=== PATIENT | male | born 1955 | race Caucasian/White ===

== ENCOUNTER → 2020-10-24 12:39 | Outpatient (CLI) | payer MEDICARE, SELFPAY ==
--- NOTE | ~2020-10-24 | CT_ITS ---
EXAMINATION: CT abdomen pelvis w con DATE: 10/24/2020 13:31 INDICATION: Prostate cancer staging TECHNIQUE: Computed tomography (CT) of the abdomen and pelvis was performed with 100 cc Omnipaque 350 intravenous contrast. Automated exposure control and iterative reconstruction technique were employe d. Exam dose: 774.62 mGy-cm total exam DLP. COMPARISON: None. FINDINGS: There is discoid atelectasis or scarring in both lower lobes. No pulmonary consolidation. Normal heart size. No pericardial effusion or pleural effusion. Diffuse hepatic steatosis. No hepatic space-occupying mass lesion. One or more gallstones at the neck of the gallbladder. No gallbladder wall thickening or pericholecystic fluid or fat stranding. No rain e duct or pancreatic duct dilatation. No pancreatic mass lesion or calcification. Normal splenic size. Normal morphology of the adrenal glands. 1.5 cm lower pole left renal cyst. No other renal mass lesion is evident. No urinary tract calculus o r hydroureteronephrosis. Normal caliber of the abdominal aorta. No intraperitoneal or retroperitoneal or pelvic adenopathy or ascites. There is nodular soft tissue impression upon the base of the urinary bladder with some contrast enhan cement, likely due to the clinically reported prostate cancer. There is moderate diffuse bladder wall thickening. There is prostate enlargement and calcification. Small sliding hiatal hernia. No bowel obstruction, bowel wall thickening, pneumatosis or intraperiton eal free air. Posterior and interbody spinal fusion at L4-S1. No osteolytic or osteosclerotic metastatic lesions are identified. IMPRESSION: Probable enhancing prostate cancer impressing the base of the urinary bladder no pelvic or abdominal lymphadenopathy; no pelvic or abdominal or skeletal metastatic disease is identified Moderate thickening of the urinary bladder wall which may indicate some bladder outlet obstruction Status post posterior and interbody spinal fusion at L4-S1 Hepatic steatosis 1.5 cm left renal cyst Reviewed, dictated and finalized at Location A. Reviewed, dictated and finalized at location B. IANCE INSTALLER IMPRESSION: Probable enhancing prostate cancer impressing the base of the urin mary bladder no pelvic or abdominal lymphadenopathy; no pelvic or abdominal or s keletal metastatic disease is identified Moderate thickening of the urinary bladder wall which may indicate some bladder outlet obstruction Status post posterior and interbody spinal fusion at L4-S1 Hepatic steatosis 1.5 cm left renal cyst
[2020-10-24 13:21] LABS: Estimated Glomerular Filt Rate > 60
== END ==
PROVIDERS: PCP Family Medicine; Visit Provider Urology
DX: C61 Malignant neoplasm of prostate (principal)
CPT/HCPCS: 74177; Q9967

== ENCOUNTER 2020-11-09 10:15 | Outpatient (CLI) | payer MEDICARE, SELFPAY | END 2020-11-09 10:16 | disposition home or self-care (01) | LOC: ANHCOVIDVC 10:15 | PROVIDERS: PCP Family Medicine | DX: Z23 Encounter for immunization (principal) | CPT/HCPCS: 0001A; 91300 ==

== ENCOUNTER 2020-11-30 10:13 | Outpatient (CLI) | payer MEDICARE, SELFPAY | END 2020-11-30 10:14 | disposition home or self-care (01) | LOC: ANHCOVIDVC 10:13 | PROVIDERS: PCP Family Medicine | DX: Z23 Encounter for immunization (principal) | CPT/HCPCS: 0002A; 91300 ==

== ENCOUNTER 2020-12-24 10:21 | Outpatient (CLI) | payer MEDICARE, SELFPAY ==
--- NOTE | 2020-12-24 10:30 | ECG_ITS ---
Measurements Intervals [place] Rate: 65 P: 32 OR: 192 QRS: 9 QRSD: 84 T: 12 QT: 374 QTc: 390 Interpretive Statements SINUS RHYTHM BASELINE ARTIFACT- I, II, III, AVR, AVL, AVF, V4 NORMAL ECG Electronically Signed On 12-24-2020 12:18:48 CDT by Lux Eli D.O.
== END 2020-12-24 10:22 | disposition home or self-care (01) ==
LOC: ANHSURGERY 10:23
PROVIDERS: PCP Family Medicine; Visit Provider Urology
DX: Z01.810 Encounter for preprocedural cardiovascular examination (principal); I10 Essential (primary) hypertension
CPT/HCPCS: 93005

== ENCOUNTER → 2020-12-29 00:57 | Outpatient (CLI) | payer MEDICARE, SELFPAY ==
[2020-12-29 20:54] LABS: SARS-CoV-2 RNA PCR Negative
== END ==
PROVIDERS: PCP Family Medicine; Visit Provider Urology
DX: Z01.812 Encounter for preprocedural laboratory examination (principal); Z20.822 Contact with and (suspected) exposure to COVID-19
CPT/HCPCS: C9803; U0003; U0005

== ENCOUNTER 2021-01-01 01:25 | Day surgery (SDC) | payer MEDICARE, SELFPAY ==
[2020-12-19 10:54] VITALS: BMI 28.0
--- NOTE | 2021-01-01 09:05 | WPDANESEPPF ---
Anes - Initial Pre Proc Eval Procedure: Operation Date: 01/01/21 11:00 Proposed Procedures p Insertion SpaceOAR Hydrogel System - Toni Theodore MD Date/Time: 01/01/21 09:05 Surgeon: Toni Theodore MD Pre Op Diagnosis: prostate CA Patient Data Age: 65 Gender: M Height: 1.75 m Weight: 86 kg Allergies Allergy/AdvReac Type Severity Reaction Status Date / Time Penicillins Allergy Mild Rash Verified 01/01/21 09:59 tobramycin Allergy Mild Rash Verified 01/01/21 09:59 guaifenesin Allergy Unknown Rash Verified 01/01/21 09:59 niacin Allergy Unknown Rash Verified 01/01/21 09:59 MYTRACIN Allergy Mild Rash Uncoded 01/01/21 09:59 Home Medications Medication Instructions Recorded Confirmed Type irbesartan 300 mg tablet 300 mg PO HS 02/03/20 01/01/21 History gabapentin 300 mg capsule 300 mg PO BID #60 cap 10/30/20 01/01/21 Rx atorvastatin 10 mg PO QAM 12/19/20 01/01/21 History nadolol 40 mg PO QAM 12/19/20 01/01/21 History Patient hx anesthesia problems: none Family hx anesthesia problems: none PMFSH Past Medical History Medical History (Updated 01/01/21 @ 09:07 by Anton Neri MD) Benign essential hypertension Encounter for hepatitis C screening test for low risk patient Metabolic syndrome Mixed hyperlipidemia Overweight Overweight (BMI 25.0-29.9) Peritonsillar abscess Prediabetes Prostate CA Surgical History Surgical History H/O arthroscopy of shoulder 07-08-1990, and 01-05-2001 History of arthroscopic surgery of elbow 10-08-1997, and 05-08-2004 History of cervical discectomy 07-08-2016 History of colonoscopy 04-17-2008 Family History Family History Grandparent Diabetes mellitus Family history of malignant neoplasm Family history of coronary artery disease Mother Diabetes mellitus Hypertension Family history of elevated blood lipids Family history of coronary artery disease Father Family history of glaucoma Hypertension Family history of elevated blood lipids Acute myocardial infarction Family history of coronary artery disease Social History Social History Smoking status: Never smoker Alcohol intake: current Substance use: never Living arrangements: with family Spiritual care concerns: No Anes - Eval Final PreProcedure Day of Procedure 01/01/21 09:05 Patient weight: overweight Heart: regular rate and rhythm Lungs: clear to auscultation and normal air movement Airway: Mallampati scale class II Neurological: alert and oriented Last oral intake: >/= 8 hours ASA classification: III Emergent: no Anesthetic plan: proceed Anesthesia type and monitoring: general GIVS and LMA Informed Consent: The patient's anesthetic plan and its attendant risks and benefits were discussed with the patient/family/POA. Questions were solicited and answers provided to the satisfaction of the patient/family/POA.
[2021-01-01 10:00] VITALS: BMI 27.6
[2021-01-01] MEDS: LACTATED RINGERS 1,000 ML 30 ML IV CONT (10:11)
--- NOTE | 2021-01-01 10:19 | WPDHPUPDATE1 ---
History and Physical Update Update Date/Time: 01/01/21 10:19 History and Physical has been reviewed, including an updated exam of the patient. There are NO changes in the patient's condition. Risks, benefits, and alternatives have been discussed and questions answered. Patient agrees to proceed with procedure. Proceed with space oar
[2021-01-01 10:28] VITALS: BP 128/79; PULSE 66; RESP 16; TEMP 36.9; O2SAT 99
[2021-01-01] MEDS: ceFAZolin 2 GM/D5W 50 ML 2 GM/50 ML BAG IVPB (11:36)
--- NOTE | 2021-01-01 11:57 | PM.PROC ---
Procedure Note - Detailed Date of procedure: 01/01/21 Pre-op diagnosis: prostate CA Post-op diagnosis: same Procedure performed: Transrectal ultrasound with space oar placement Description of procedure: Patient is taken the operative suite and correctly identified. Once anesthesia was obtained was placed in dorsal lithotomy position and prepped and draped usual sterile fashion. Transrectal ultrasound was then performed. Prostate was visualized in both transverse sagittal planes. Spinal needle was inserted into the perineum and advanced into the space between the prostate and the rectum. This is very of sherrie by injecting is cc saline. Aspiration revealed no edema. The space Oar material was injected but it froze up after about a cc. At this point we reintroduced another spinal medial into the appropriate location and injected the full 10 cc. There was good separation of the prostate from the rectum. This was verified again in both sagittal and transverse planes. Patient was taken recovery stable condition. Anesthesia: GLMA Surgeon: Toni Theodore MD Drains: No Packing: No Pathology: none sent Complications: No immediate complications Condition: stable Disposition: PACU
[2021-01-01 12:00] VITALS: BP 95/61; PULSE 71; RESP 12; O2SAT 94
[2021-01-01 12:30] VITALS: BP 95/61; PULSE 69; RESP 12; O2SAT 98
== END 2021-01-01 12:42 | disposition home or self-care (01) ==
PROVIDERS: PCP Family Medicine; Visit Provider Urology
DX: C61 Malignant neoplasm of prostate (principal); I10 Essential (primary) hypertension; E78.2 Mixed hyperlipidemia; E66.3 Overweight; Z68.27 Body mass index [BMI] 27.0-27.9, adult
CPT/HCPCS: 55874; 93005; A9270; C1889; C9803; J0690; J2405; J2704; J3010; J7120; U0003; U0005

== ENCOUNTER → 2021-01-08 10:42 | Outpatient (CLI) | payer MEDICARE, SELFPAY ==
--- NOTE | ~2021-01-08 | MR_ITS ---
EXAMINATION: MR pelvis wo/w con INDICATION: Prostate cancer TECHNIQUE: Coronal SSFSE ARC, Axial, Sagittal, and Coronal 2D FIESTA FatSat, Axial 3D T2 Cube, Axial SSFSE BH ARC, Axial 3D DualEcho BH, Axial SSFSE-IR Wing, Axial DWI b=600, pre and dynamic postcontrast Axial LAVA ARC, WATER:POST Cor LAVA-FLEX COMPARISON: CT, 10/24/2020 CONTRAST: Multihance, 15 cc FINDINGS: There is hypertrophy of the median lobe of the prostate which protrudes into the bladder ba se. There is diffusely low T2 signal intensity in the prostate. No pathologically enlarged pelvic lym ph nodes are identified. There are changes of anterior and posterior fusion from L4 through S1. Mater ial situated between the rectum and prostate likely relates to prostate biopsy. There are no dilated loops of bowel. A 2.4 cm cyst is noted in the lower pole of the left kidney. IMPRESSION: 1. No evidence of metastatic disease. Reviewed, dictated and finalized at location A.
[2021-01-08 11:32] LABS: Estimated Glomerular Filt Rate > 60
== END ==
PROVIDERS: Visit Provider Radiology Radiation Oncology
DX: C61 Malignant neoplasm of prostate (principal)
CPT/HCPCS: 72197; A9577

== ENCOUNTER 2021-06-11 09:44 | Outpatient (CLI) | payer MEDICARE, SELFPAY ==
--- NOTE | 2021-06-11 | ECG_ITS ---
Measurements Intervals [place] Rate: 58 P: 54 VT: 199 QRS: 23 QRSD: 87 T: 29 QT: 394 QTc: 388 Interpretive Statements SINUS BRADYCARDIA BORDERLINE ECG Electronically Signed On 06-11-2021 10:58:21 CDT by Lux Eli D.O.
[2021-06-11 10:07] LABS: Hematocrit 41.5 % (42.0-52.0); Hemoglobin 14.3 g/dL (14.0-18.0); Mean Corpuscular HGB Conc 34.5 g/dl (32-36); Mean Corpuscular Hemoglobin 33.9 pg (26-34); Mean Corpuscular Volume 98.3 fl (80-100); Mean Platelet Volume 8.5 fl (7.4-10.4); Platelet Count Result 184 k/mm3 (150-375); Red Blood Count 4.22 M/mm3 (4.6-6.20); Red Cell Distribution Width 11.9 % (11.5-14.5); White Blood Count 4.1 K/mm3 (4.5-10.0)
[2021-06-11 10:21] LABS: Alanine Aminotransferase 37 U/L (4-50); Albumin Level 4.6 g/dL (3.5-5.1); Alkaline Phosphatase 57 U/L (38-126); Anion Gap 8 mmol/L (8-16); Aspartate Amino Transferase 34 U/L (17-59); Bilirubin,Total 0.4 mg/dL (0.2-1.3); Blood Urea Nitrogen 18 mg/dL (9-20); Calcium 9.3 mg/dL (8.4-10.2); Carbon Dioxide 30 mmol/L (22-30); Chloride 103 mmol/L (98-107); Estimated Glomerular Filt Rate > 60; Glucose 101 mg/dL (65-110); Potassium 4.8 mmol/L (3.4-5.0); Sodium 141 mmol/L (137-145)
== END 2021-06-11 09:45 | disposition home or self-care (01) ==
LOC: ANHLAB 09:47
PROVIDERS: PCP Family Medicine; Visit Provider Orthopaedic Surgery
DX: Z01.818 Encounter for other preprocedural examination (principal); R00.1 Bradycardia, unspecified
CPT/HCPCS: 36415; 80053; 85027; 93005

== ENCOUNTER → 2022-07-07 10:02 | Outpatient (CLI) | payer MEDICARE, SELFPAY ==
--- NOTE | ~2022-07-07 | XR_ITS ---
XR cervical spine min 6V DATE: 07/07/2022 10:37 INDICATION: Previous surgery TECHNIQUE: AP, open-mouth, lateral, swimmer's and bilateral oblique COMPARISON: None FINDINGS: Status post anterior and interbody surgical fusion at C3-4. Status post anterior and interbody surgical fusion at C4-5. Status post anterior and interbody spinal fusion at C6-7. There is evidence of surgical interbody fusion at the C5-6 interspace. There is straightening of the cervical spine. C1 and C2 are normally aligned and the odontoid process is intact. No fracture or dislocation or prevertebral soft tissue swelling is noted. IMPRESSION: Cervical surgical fusion at C3-C7 Reviewed, dictated and finalized at location A.
--- NOTE | ~2022-07-07 | XR_ITS ---
XR lumbar spine min 4V DATE: 07/07/2022 10:36 INDICATION: Previous surgery TECHNIQUE: AP, lateral, bilateral oblique and coned lateral lumbosacral views COMPARISON: None FINDINGS: Pedicle screws and rods are noted bilaterally as well as interbody spinal fusion at L4-S1. There is minimal retrolisthesis and moderate degenerative disc disease at L3-4. L1-2 and L2-3 interspaces are well preserved. No fracture or bone destruction is evident. The sacroiliac joints are intact. Approximately 6 mm calcified gallstone overlying right upper quadrant. IMPRESSION: Status post bilateral posterior and interbody spinal fusion at L4-S1 Cholelithiasis Reviewed, dictated and finalized at location A. IMPRESSION: Status post bilateral posterior and interbody spinal fusion at L4-S 1 Cholelithiasis
== END ==
PROVIDERS: PCP Family Medicine; Visit Provider Family Medicine
DX: M54.9 Dorsalgia, unspecified (principal); M54.2 Cervicalgia; Z98.1 Arthrodesis status; K80.20 Calculus of gallbladder without cholecystitis without obstruction
CPT/HCPCS: 72052; 72110

== ENCOUNTER → 2022-08-04 11:45 | Outpatient (CLI) | payer MEDICARE, SELFPAY ==
--- NOTE | ~2022-08-04 | XR_ITS ---
XR lumbar spine 2-3V DATE: 08/04/2022 12:11 INDICATION: Back pain TECHNIQUE: AP, lateral, coned lateral lumbosacral views COMPARISON: 07/07/2022 lumbar spine FINDINGS: Status post posterior and interbody spinal fusion at L4-S1. Hardware appears intact without fracture or displacement since 07/07/2022. There is mild thoracolumbar levoscoliosis. No fracture or bone destruction of the lumbar spine is evident. There is however moderate loss of hei ght and anterior wedging of T12 since 07/07/2022, consistent with recent T12 fracture, likely ronaldo karlie type. There is mild degenerative disc disease IMPRESSION: Recent T12 probable compression fracture Status post posterior and interbody spinal fusion at L4-S1 Reviewed, dictated and finalized at location B. WHEELER
--- NOTE | ~2022-08-04 | XR_ITS ---
XR sacrum coccyx min 2V DATE: 08/04/2022 12:04 INDICATION: Sacrococcygeal disorder TECHNIQUE: AP and angled AP views COMPARISON: None FINDINGS: No sacral or coccygeal fracture or bone destruction is detected. Sacroiliac joints are int act. Pedicle screws and cage devices at L5-S1 Surgical clips overlie prostate bed. IMPRESSION: No significant abnormality of the sacrum or coccyx Lumbosacral spine surgical fusion Reviewed, dictated and finalized at location B. WORKER
== END ==
PROVIDERS: PCP Nurse Practitioner; Visit Provider Nurse Practitioner
DX: M54.9 Dorsalgia, unspecified (principal); M53.3 Sacrococcygeal disorders, not elsewhere classified; Z98.1 Arthrodesis status
CPT/HCPCS: 72100; 72220

== ENCOUNTER → 2022-10-01 08:23 | Outpatient (CLI) | payer MEDICARE, SELFPAY ==
--- NOTE | ~2022-10-01 | XR_ITS ---
Supine and upright views of the abdomen Clinical history: Hematuria, history of kidney stones Findings: Bowel gas pattern is nonspecific. No evidence for obstruction or free air. 7 mm calcificati on overlies the right upper renal pole. Lumbosacral spinal fixation hardware is present. Impression: Probable 7 mm right upper pole renal stone. Reviewed, dictated and finalized at [facility]. R BELT CONVEYOR Impression: Probable 7 mm right upper pole renal stone.
--- NOTE | ~2022-10-01 | CT_ITS ---
CT of the Abdomen and Pelvis: Indication: Gross hematuria Technique: 2.5 mm axial scans were obtained through the abdomen and pelvis prior to and following in travenous administration of 130 cc of Omnipaque 350. Dose reduction technique was used on this scan b y utilizing automated exposure control and iterative reconstruction technique. The dose-length produc t (DLP) was 1877.54 mGy-cm. COMPARISON: 08/23/2021 Findings: Scans through the lung bases are unremarkable. Diffuse fatty infiltration of liver noted. Calcified gallstone present. Simple left renal cyst presen t. The spleen, pancreas, adrenals and kidneys are otherwise within normal limits. No evidence of aor tic aneurysm. Ureters are opacified, and unremarkable. No lymphadenopathy. No bowel obstruction or bowel wall thickening. There is no evidence to suggest acute appendicitis. Images through the pelvis were performed. Urinary bladder unremarkable. Prostate gland there is mildl y prominent, with fiducial markers present. No ascites. There is compression fracture of T12, with pr obable sclerotic change. Impression: No etiology for hematuria identified. Cholelithiasis. Diffuse fatty infiltration of the liver. T12 compression fracture with sclerotic change. Patient has reported history of prostate cancer. Path ologic fracture with osteoblastic metastatic disease to the T12 vertebral body is a consideration sabina tracey reactive sclerosis and benign fracture. MR could be considered to better evaluate the underlying marrow signal characteristics, as indicated. Reviewed, dictated and finalized at [facility]. STRAIGHTENER Impression: No etiology for hematuria identified. Cholelithiasis. Diffuse fatty infiltration of the liver. T12 compression fracture with sclerotic change. Patient has reported history of prostate cancer. Pathologic fracture with osteoblastic metastatic disease to t he T12 vertebral body is a consideration versus reactive sclerosis and benign f racture. MR could be considered to better evaluate the underlying marrow signal characteristics, as indicated.
[2022-10-01 09:16] LABS: Estimated Glomerular Filt Rate > 60
== END ==
PROVIDERS: PCP Family Medicine; Visit Provider Urology
DX: R31.0 Gross hematuria (principal); K80.20 Calculus of gallbladder without cholecystitis without obstruction; K76.0 Fatty (change of) liver, not elsewhere classified; M48.54XA Collapsed vertebra, not elsewhere classified, thoracic region, initial encounter for fracture
CPT/HCPCS: 74018; 74178; Q9967

== ENCOUNTER 2024-02-05 09:29 | Outpatient (CLI) | payer MEDICARE, SELFPAY ==
--- NOTE | ~2024-02-05 | XR_ITS ---
EXAMINATION: XR lumbar spine min 4V DATE: 02/05/2024 09:52 INDICATION: Low back pain. TECHNIQUE: 5 views of lumbar spine including standing views and flexion and extension views were obta ined. COMPARISON: Lumbar spine radiographs 08/04/2022 FINDINGS: There are changes of anterior and posterior fusion procedures from L4 to S1 with interbody devices and pedicle screws. There is no abnormal motion on flexion or extension. There is a chronic c ompression fracture of T12 with 2/5 loss of height. There is moderately decreased disc height at L3-L 4. There is multilevel mild facet joint osteoarthritis. IMPRESSION: 1. Moderate spondylosis at L3-L4. 2. Anterior and posterior fusion procedures from L4 to S1. Reviewed, dictated and finalized at location A.
== END 2024-02-05 09:30 ==
DX: M48.062 Spinal stenosis, lumbar region with neurogenic claudication (principal); M43.06 Spondylolysis, lumbar region; Z98.1 Arthrodesis status
CPT/HCPCS: 72110

== ENCOUNTER 2024-05-16 11:40 | Outpatient (CLI) | payer MEDICARE, SELFPAY | END 2024-05-16 11:41 | disposition home or self-care (01) | LOC: MICIMG 11:41 | PROVIDERS: PCP Physical Medicine & Rehabilitation; Visit Provider Physical Medicine & Rehabilitation | DX: M25.561 Pain in right knee (principal) | CPT/HCPCS: 73564 ==

== ENCOUNTER 2024-11-11 08:10 | Outpatient (CLI) | payer MEDICARE, SELFPAY ==
--- NOTE | ~2024-11-11 | CT_ITS ---
EXAMINATION: CT sinus wo con DATE: 11/11/2024 08:21 INDICATION: Chronic sinusitis, unspecified. TECHNIQUE: Computed tomography (CT) of the paranasal sinuses was performed without intravenous contra st. Iterative reconstruction technique was employed. The dose-length product was 263.20 mGy-cm. COMPARISON: None FINDINGS: There is moderate mucosal thickening in the frontal recesses. There is mild mucosal thicken ing in the bilateral ethmoid and maxillary sinuses and left sphenoid sinus. The ostiomeatal units are patent. There is leftward deviation of the nasal septum. IMPRESSION: 1. Mucosal thickening in the paranasal sinuses. 2. Leftward deviation of the nasal septum. Reviewed, dictated and finalized at location A. HASING AGENT
== END 2024-11-11 08:11 | disposition home or self-care (01) ==
LOC: MICIMG 08:10
PROVIDERS: PCP Family Medicine; Visit Provider Otolaryngology Otolaryngology/Facial Plastic Surgery
DX: J34.89 Other specified disorders of nose and nasal sinuses (principal); J34.2 Deviated nasal septum
CPT/HCPCS: 70486

== ENCOUNTER 2025-03-21 11:25 | Outpatient (CLI) | payer MEDICARE, SELFPAY ==
--- NOTE | ~2025-03-21 | CT_ITS ---
CT of the Abdomen: Indication: Right upper quadrant pain Technique: 2.5 mm axial scans were obtained through the abdomen following intravenous administration of 100 cc of Omnipaque 350. Dose reduction technique was used on this scan by utilizing automated ex posure control and iterative reconstruction technique. The dose-length product (DLP) was 526.52 mGy-c m. COMPARISON: 09/26/2022 Findings: Scans through the lung bases are unremarkable. There is diffuse hepatic steatosis. Small calcified gallstone present. The spleen, pancreas, adrenals and kidneys are within normal limits. No evidence of aortic aneurysm. No lymphadenopathy. Visualized bowel loops are unremarkable. No ascites. Impression: Diffuse hepatic steatosis. Small calcified gallstone. Reviewed, dictated and finalized at location . Impression: Diffuse hepatic steatosis. Small calcified gallstone.
[2025-03-21 11:51] LABS: Estimated Glomerular Filt Rate > 60
== END 2025-03-21 11:26 | disposition home or self-care (01) ==
LOC: MICIMG 11:26
PROVIDERS: PCP Family Medicine; Visit Provider Family Medicine
DX: K76.0 Fatty (change of) liver, not elsewhere classified (principal); K80.20 Calculus of gallbladder without cholecystitis without obstruction
CPT/HCPCS: 74160; Q9967

== ENCOUNTER 2025-05-29 00:32 | Day surgery (SDC) | payer MEDICARE, SELFPAY ==
--- OUTSIDE RECORDS SUMMARY | 2025-02-17 04:42 | XMS_ITS | Continuity of Care Document ---
Author Organization [facility] Address [address] [place] [address] Phone Care Team Providers Care Cattyman Name Role Phone Chao Hinkle MD Unavailable Unavailable Medications Medication Instructions Dosage Effective Dates (start - stop) Status Comments Sutab 1.479-0.188-0.225 gram tablet take by oral route as directed per package instructions 0.00 - Active 03/19/22 07 Sutab 1.479-0.188-0.225 gram tablet take by oral route as directed per package instructions 0.00 - No Longer Active 03/19/22 07 Procedures Procedure Date MRI OF NECK, SPINE W/O CONTRAST 023 MRI, LUMBAR SPINE W/O CONTRAST TISSUE EXAM BY PATHOLOGIST Colonoscopy, Flex; Diagnostic, With Endo Mucosal Resection INJECTION ANESTHETIC AND/OR STERIOD, TRANS EPIDURAL LUMB OR SACRAL,, SINGLE LEVE SURGICAL TRAY LOW OSMOLAR CONTRAST (200 TO 299 MG IODI NE) DEPO-MEDROL 80MG INJECT, ANESTHETIC AND/OR ST EROID, TRANSFORAMINAL EPIDURAL; C/T, SINGLE LEVEL LOW OSMOLAR CONTRAST (200 TO 299 MG IODI NE) INJ, DEXAMETHASONE SODUIM PHOSPHATE (DEC ADRON) 1MG SURGICAL TRAY INJECT, ANESTHETIC AND/OR ST EROID, TRANSFORAMINAL EPIDURAL; C/T, SINGLE LEVEL LOW OSMOLAR CONTRAST (200 TO 299 MG IODI NE) INJ, DEXAMETHASONE SODUIM PHOSPHATE (DEC ADRON) 1MG SURGICAL TRAY TISSUE EXAM BY PATHOLOGIST COLONOSCOPY AND BIOPSY Advance Directives Directive Yes / No Effective Date File Name No Information Encounters Encounter Description Practice Location Reason(s) For Visit Diagnoses Date Provider Providers Copied on Encounter [facility], [address], [place], [place], [address], tel:[phone] [facility] No Information Arin Guidry. [address] [place] [address], [id number] , [place]. tel:[phone] [facility], [address], [place], [place], [address], [place] tel:[phone] [facility] No Information Rohini Brunner. [address] , [place], [place], [id number] , [place]. tel:[phone] Referring Provider: Chauncey Cobos, [address], [place], [address]. tel:[phone] [facility], [address], [place], [place], [address], [place] tel:[phone] [facility] No Information Arin Guidry. [address] [place] [address], [id number] , [place]. tel:[phone] Referring Provider: Parker Lorenzo, [address] [place], [address]. [facility], [address], [place], [place], [address], [place] tel:[phone] [facility] No Information Arin Guidry. [address] [place] [address], [id number] , [place]. tel:[phone] Referring Provider: Loli Simmons, [address] [place], [address]. tel:[phone] [facility], [address], [place], [place], [address], [place] tel:[phone] [facility] No Information Arin Guidry. [address] [facility] [address], [place], [place], [id number] , [place]. tel: [phone] [facility], [address], [place], [place], [address], [place] tel:[phone] [facility] No Information Aníbalck Iftikhar. [address] , [place], [place], [address] , [place]. tel: [phone] Referring Provider: Chauncey Cobos, [address], [place], [address]. tel:[phone] [facility], [address], [place], [place], [address], [place] tel:[phone] [facility] No Information Paulino Buitrago. [address] , [place], [place], [address] , [place]. tel: [phone] Referring Provider: Chauncey Cobos, [address], [place], [address]. tel:[phone] [facility], [address], [place], [place], [address], [place] tel:[phone] [facility] No Information Rohini Brunner. [address], [place], [place], [address] , [place]. tel: [phone] Referring Provider: Chauncey Cobos, [address], [place], [address]. tel:[phone] [facility], [address], [place], [place], [address], [place] tel:[phone] [facility] No Information Arin Guidry. [address] [facility] [facility] [address], [place], [place], [address] , [place]. tel: [phone] Referring Provider: Parker Lorenzo, [address], [place], [address]. [facility], [address], [place], [place], [address], [place] tel:[phone] [facility] No Information Arin Guidry. [address] [facility], [address], [place], [place], [address] , [place]. tel: [phone] Referring Provider: Parker Lorenzo, [address], [place], [address]. [facility], [address], [place], [place], [address], [place] tel:[phone] [facility] CERVICAL DISC DISPLACMNT Theresa Berry. [address], [place], [place], [address] . tel: [phone] [facility], [address], [place], [place], [address], tel:[phone] [facility] OTH ADV EFF MED/BIO SUB Theresa Berry. [address], [place], [place], [address] . tel: [phone] [facility], [address], [place], [place], [address], [place] tel:[phone] [facility] BRACHIAL NEURITIS NOS Theresa Berry. [address], [place], [place], [address] . tel: [phone] Family History Family Member Type Diagnosis Age At Onset No Information Payers Payer name Insurance type Covered democrat ID Authoriza tiluis(s) [facility] [employer] [id number] Social History Type Description Quantity Date Captured Comments Sex Male Smoking Status No Information Chief Complaint And Reason For Visit No Information Reason For Referral Reason For Referral No Information History Of Present Illness Encounter Date Complaint History Of Prese nt Illness No Information Functional Status Date Functional Assessmen t No Information Instructions Date Instruction Additional Infor mation No Information Assessments Type Assessment Date No Information Patient Care Teams Name Effective Dates (start - stop) Status Members No Information
[2025-05-15 10:52] VITALS: BMI 27.3
--- OUTSIDE RECORDS SUMMARY | 2025-05-29 00:35 | XMS_ITS | Clinical Summary ---
Author Organization [facility] Address [address] [place] [address] Care Team Providers Care Pulmonary Physician Name Role Phone Unavailable Primary Care Provider Unavailabl e Source Comments [facility],non-owned Affiliates and Associated Physician Practices is amultiple site organization consisting of ambulatory clinics and hospital sitesin [place], [place], [place] and [place]. This disclosure is being madepursuant to the Care Everywhere program and may not contain all information available regarding this patient. Last updated 18.[facility] Social History Tobacco Use Types Packs/Day Years Used Date Smoking Tobacco: Never Assessed Sex and Gender Information Value Date Recorded Sex Assigned at Not on file Legal Sex Male 6:49 PM PLY BANDER Gender Identity Not on file Sexual Orientation Not on file Plan of Treatment Health Maintenance Due Date Last Done Comments COLOGUARD (AGES 45-75) - COL ON CA SCREENING 1954 COLON MONITORING 1954 COLONOSCOPY - COLON CA SCREENING 1954 CT COLONOGRAPHY - COLON CA SCREENING 1954 Colorectal Cancer Screening 1954 FIT - COLON CA SCREENING 1954 FLEX SIG - COLON CA SCREENING 1954 LIPID TESTING 1954 HEPATITIS C SCREENING 03/07/1972 DTAP/TDAP/TD VACCINES (1 - Tdap) 1973 PNEUMOCOCCAL VACCINE 50+ (1 of 1 - PCV) 2004 ZOSTER VACCINE (1 of 2) 2004 DEPRESSION SCREENING 09/07/2024 COVID-19 VACCINE ( - 2023-2 5 season) 2025 INFLUENZA VACCINE (#1) 2025 Respiratory Syncytial Virus (RSV) Vaccine Pt: or over 60 yrs (1 - 1-dose 75+ series) 2029 HEPATITIS B VACCINE Aged Out No longe r eligible based on patient's age to complete this topic HIB VACCINE Aged Out No longer eligi ble based on patient's age to complete this topic HPV VACCINE Aged Out No longer eligi ble based on patient's age to complete this topic MENINGOCOCCAL (Group B) VACC INE SHARED DECISION-MAKING Aged Out No longer eligibl e based on patient's age to complete this topic MENINGOCOCCAL GROUPS A/C/Y/W VACCINE Aged Out No longer eligible b ased on patient's age to complete this topic
--- OUTSIDE RECORDS SUMMARY | 2025-05-29 00:35 | XMS_ITS | Encounter Summary ---
Author Organization [facility] Address [address] [place] [address] Care Team Providers Care Hydroelectric Mechanic Name Role Phone Unavailable Primary Care Provider Unavailabl e Encounter Details Date Type Department Care Team (Late st Contact Info) Description 11/04/2019 Lab Requisition [facility] Derm[facility] [address] [place] [id number] Daljit Telles MD [address] [facility] [address] [place] [address] Social History Tobacco Use Types Packs/Day Years Used Date Smoking Tobacco: Never Assessed Sex and Gender Information Value Date Recorded Sex Assigned at Not on file Legal Sex Male 6:49 PM DEATH CLAIM EXAMINER Gender Identity Not on file Sexual Orientation Not on file documented as of this encounter Plan of Treatment Not on file documented as of this encounter Procedures Procedure Name Priority Date/Time Associated Diagnosis Comments DERMATOPATHOLOGY Routine 11/02/2019 12:0 0 AM DEATH CLAIM EXAMINER documented in this encounter Results * DERMATOPATHOLOGY (11/02/2019 12:00 AM DEATH CLAIM EXAMINER) Case Report Dermatopathology Report Case: [id number] Authorizing Provider: Daljit Telles MD Collected: 11/02/2019 12:00 AM Ordering Location: [facility]erm[facility] Lab Received: 11/04/2019 12:07 PM Pathologist: Kayleigh Orosco MD Specimen: Skin, right forehead 0 11:29 AM DEATH CLAIM EXAMINER DERMATOPATHOLOGY LABORATORY Final Diagnosis Specimen A. 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 The specimen consists of a shave biopsy measuring 8x6x2 mm. Jar 0. 0 11:29 AM [facility] DERMATOPATHOLOGY LABORATORY Microscopic Description Specimen A. SKIN, right forehead: Sections show well-circumscribed lobules composed of central mature sebocytes and a smaller component of peripheral basaloid cells. COMMENT: Sebaceous neoplasms can be sporadic or associated with Kamila-Prasanna syndrome. At the request of the clinician the specimen can be submitted for immunohistochemical testing of DNA mismatch repair genes if clinically indicated. 0 11:29 AM [facility] DERMATOPATHOLOGY LABORATORY Disclaimer An external and internal positive and negative controls are appropriate for the histochemical, immunohistochemical and immunofluorescence stain(s) in this case (if any), except where stated explicitly. The performance characteristics of the stain(s) cited in this report were developed and its performance characteristic determined by the Dermatopathology Laboratory at [facility], directed by Dr. Leonard Orosco. These tests need not be, and therefore are not, approved by the [place] Food and Drug Administration. The tests are used for clinical purposes. Billing Codes Specimen Charges Stain Charges 97209 1 0 11:29 AM [facility] DERMATOPATHOLOGY LABORATORY Embedded Images 0 11:29 AM [facility] DERMATOPATHOLOGY LABORATORY Pathology/Cytolog y TISSUE SPECIMEN FROM SKIN / Unknown 11/02/2019 11/04/2019 12:07 PM DEATH CLAIM EXAMINER Daljit Telles MD LAB - PATHOLOGY/CYTOLOGY ORDERA BLES Final Result DERMATOPATHOLOGY LABORATORY [facility] - Department of Dermatology [address] [place] [address], [address] [place] [address], [facility] [phone] documented in this encounter Visit Diagnoses Not on filedocumented in this encounter
[2025-05-29 08:58] VITALS: BP 135/76; PULSE 63; RESP 14; TEMP 36.3; O2SAT 95
[2025-05-29] MEDS: LACTATED RINGERS 1,000 ML 150 ML IV CONT (09:06)
--- NOTE | 2025-05-29 09:38 | WPDANESEPPF ---
Anes - Initial Pre Proc Eval Procedure: Operation Date: 05/29/25 10:00 Proposed Procedures p Screening Colonoscopy - Kj Osorio MD Date/Time: 05/29/25 09:38 Surgeon: Kj Osorio MD Pre Op Diagnosis: Personal history of colon polyps, unspecified Patient Data Age: 70 Gender: M Height: 1.75 m Weight: 84.2 kg Last Vital Signs Temp 36.3 C L 05/29/25 08:58 Pulse 63 05/29/25 08:58 Resp 14 05/29/25 08:58 BP 135/76 05/29/25 08:58 Pulse Ox 95 05/29/25 08:58 O2 Del Method Room Air 05/29/25 08:58 Allergies Allergy/AdvReac Type Severity Reaction Status Date / Time Penicillins Allergy Mild Rash Verified 05/29/25 08:57 tobramycin Allergy Mild Rash Verified 05/29/25 08:57 guaifenesin Allergy Unknown Rash Verified 05/29/25 08:57 niacin Allergy Unknown Rash Verified 05/29/25 08:57 MYTRACIN Allergy Mild Rash Uncoded 03/14/25 08:57 Home Medications ?Medication ?Instructions ?Recorded ?Confirmed ?Type irbesartan 300 mg tablet 300 mg PO HS 02/03/20 05/29/25 History latanoprost 0.005 % eye drops 1 drp EACH EYE DAILY 01/24/22 05/29/25 History (Xalatan) tamsulosin 0.4 mg capsule 0.4 mg PO DAILY 01/24/22 05/29/25 History omega 9-zcc-bnr-fish oil 1,000 mg 1 cap PO BID 05/25/23 05/29/25 History (120 mg-180 mg) capsule (Fish Oil) diclofenac sodium 75 mg 75 mg PO BID 05/30/24 05/29/25 History tablet,delayed release hydrocodone 5 mg-acetaminophen 325 1 tablet PO PRN PRN pain 09/27/24 05/15/25 History mg tablet atorvastatin 20 mg tablet 20 mg PO QHS #90 tabs 01/17/25 05/29/25 Rx gabapentin 300 mg capsule See Rx Instructions .Route 03/14/25 05/29/25 Rx .COMPLEX #90 caps nadolol 40 mg tablet See Rx Instructions .Route 03/27/25 05/29/25 Rx .COMPLEX #90 tabs Patient hx anesthesia problems: none Family hx anesthesia problems: none Results Review: All pre-operative results and documents have been reviewed as part of the pre-operative evaluation. [facility] Past Medical History Medical History Deviated nasal septum Allergic rhinitis Chronic sinusitis Hepatitis C antibody test negative (04/21/17) Overweight (BMI 25.0-29.9) Prostate CA Peritonsillar abscess Overweight Metabolic syndrome Prediabetes Mixed hyperlipidemia Benign essential hypertension Surgical History Surgical History H/O radiofrequency ablation (RFA) of nerve of lumbar spine H/O right knee surgery (~07/18/21) H/O arthroscopy of shoulder 07-08-1990, and 01-05-2001 History of arthroscopic surgery of elbow 10-08-1997, and 05-08-2004 History of colonoscopy 04-17-2008 History of cervical discectomy 07-08-2016 Family History Family History Grandparent Diabetes mellitus Family history of malignant neoplasm Family history of coronary artery disease Mother Diabetes mellitus Hypertension Family history of elevated blood lipids Family history of coronary artery disease Father , age 63 Family history of glaucoma Hypertension Family history of elevated blood lipids Acute myocardial infarction Family history of coronary artery disease Social History Social History Social History: Caffeine- tea Smoking status: Never smoker Alcohol intake: current Alcohol use details: rarely Substance use: never Substance use type: does not use Lack of Transportation: No Lack of Food: Never True Current Housing: I Have Housing Concerned About Future Housing: No Difficulty Paying Gas/Electric Bills: No Difficulty Paying for Meds: No Currently Unemployed: No Education: Decline to Answer Difficulty w/ Childcare or Family Care: No Living arrangements: with family Spiritual care concerns: No Anes - Eval Final PreProcedure Day of Procedure 05/29/25 09:38 Patient weight: overweight Heart: regular rate and rhythm Lungs: clear to auscultation Airway: Mallampati scale class II Neurological: alert and oriented Last oral intake: >/= 8 hours ASA classification: III Emergent: no Anesthetic plan: proceed Anesthesia type and monitoring: general GIVS and standard monitoring Results Review: All pre-operative results and documents have been reviewed as part of the pre-operative evaluation. Informed Consent: The patient's anesthetic plan and its attendant risks and benefits were discussed with the patient/family/POA. Questions were solicited and answers provided to the satisfaction of the patient/family/POA.
--- NOTE | 2025-05-29 09:46 | PM.HPGS ---
History of Present Illness History of Present Illness Consent: Risks, benefits, and alternatives have been discussed and questions answered. Patient agrees to proceed with procedure. Chief complaint: Personal history of colon polyps, unspecified Narrative: Ata Mott is a 70 year old male with colon polyp in 2021 Review of Systems Review of Systems: All systems reviewed & are unremarkable except as noted in HPI and below PMFSH Past Medical History Medical History Deviated nasal septum Allergic rhinitis Chronic sinusitis Hepatitis C antibody test negative (04/21/17) Overweight (BMI 25.0-29.9) Prostate CA Peritonsillar abscess Overweight Metabolic syndrome Prediabetes Mixed hyperlipidemia Benign essential hypertension Surgical History Surgical History H/O radiofrequency ablation (RFA) of nerve of lumbar spine H/O right knee surgery (~07/18/21) H/O arthroscopy of shoulder 07-08-1990, and 01-05-2001 History of arthroscopic surgery of elbow 10-08-1997, and 05-08-2004 History of colonoscopy 04-17-2008 History of cervical discectomy 07-08-2016 Family History Family History Grandparent Diabetes mellitus Family history of malignant neoplasm Family history of coronary artery disease Mother Diabetes mellitus Hypertension Family history of elevated blood lipids Family history of coronary artery disease Father , age 63 Family history of glaucoma Hypertension Family history of elevated blood lipids Acute myocardial infarction Family history of coronary artery disease Social History Social History Social History: Caffeine- tea Smoking status: Never smoker Alcohol intake: current Alcohol use details: rarely Substance use: never Substance use type: does not use Lack of Transportation: No Lack of Food: Never True Current Housing: I Have Housing Concerned About Future Housing: No Difficulty Paying Gas/Electric Bills: No Difficulty Paying for Meds: No Currently Unemployed: No Education: Decline to Answer Difficulty w/ Childcare or Family Care: No Living arrangements: with family Spiritual care concerns: No Meds Home Medications and Allergies Home Medications ?Medication ?Instructions ?Recorded ?Confirmed ?Type irbesartan 300 mg tablet 300 mg PO HS 02/03/20 05/29/25 History latanoprost 0.005 % eye drops 1 drp EACH EYE DAILY 01/24/22 05/29/25 History (Xalatan) tamsulosin 0.4 mg capsule 0.4 mg PO DAILY 01/24/22 05/29/25 History omega 2-dwc-xxb-fish oil 1,000 mg 1 cap PO BID 05/25/23 05/29/25 History (120 mg-180 mg) capsule (Fish Oil) diclofenac sodium 75 mg 75 mg PO BID 05/30/24 05/29/25 History tablet,delayed release hydrocodone 5 mg-acetaminophen 325 1 tablet PO PRN PRN pain 09/27/24 05/15/25 History mg tablet atorvastatin 20 mg tablet 20 mg PO QHS #90 tabs 01/17/25 05/29/25 Rx gabapentin 300 mg capsule See Rx Instructions .Route 03/14/25 05/29/25 Rx .COMPLEX #90 caps nadolol 40 mg tablet See Rx Instructions .Route 03/27/25 05/29/25 Rx .COMPLEX #90 tabs Allergies Allergy/AdvReac Type Severity Reaction Status Date / Time Penicillins Allergy Mild Rash Verified 05/29/25 08:57 tobramycin Allergy Mild Rash Verified 05/29/25 08:57 guaifenesin Allergy Unknown Rash Verified 05/29/25 08:57 niacin Allergy Unknown Rash Verified 05/29/25 08:57 MYTRACIN Allergy Mild Rash Uncoded 03/14/25 08:57 Vital Signs Vital Signs - 24 hr 05/29/25 08:58 Temperature 97.4 F L Pulse Rate 63 Respiratory Rate 14 Blood Pressure 135/76 Pulse Oximetry 95 Oxygen Delivery Room Air Exam Const: General: comfortable and no acute distress HENMT: Face/Nose/Sinus: Normal nares present Eyes: General: appearance normal, both eyes and all related structures Neck: Neck: no JVD Resp: Auscultation: clear to auscultation bilaterally Cardio: Rate: regular rate Rhythm: regular rhythm GI: Inspection: non-distended GI Palp: Yes Soft to palpation Skin: General skin exam: normal color Neuro: Speech: normal speech Extrem: General: normal to inspection Psych: Mental Status: mental status grossly normal Assessment and Plan Assessment and plan (1) Hx of colonic polyp: Code(s): Z86.0100 - Personal history of colon polyps, unspecified Status: Acute Assessment and Plan: colonoscopy
[2025-05-29 10:00] VITALS: BP 108/70; PULSE 64; RESP 18; O2SAT 96
[2025-05-29 10:10] VITALS: BP 101/71; PULSE 64; RESP 17; O2SAT 96
[2025-05-29 10:20] VITALS: BP 115/72; PULSE 58; RESP 14; O2SAT 97
== END 2025-05-29 10:28 | disposition home or self-care (01) ==
PROVIDERS: PCP Family Medicine; Referring Provider Family Medicine; Visit Provider Internal Medicine Gastroenterology
PROC: 0DJD8ZZ Inspection of Lower Intestinal Tract, Via Natural or Artificial Opening Endoscopic (ICD-10-PCS; CPT 45378; principal; 2025-05-29 10:00)
DX: Z12.11 Encounter for screening for malignant neoplasm of colon (principal); Z86.0100 Personal history of colon polyps, unspecified
CPT/HCPCS: G0105; J2003; J2704; J7120